=== PATIENT | female | born 1965 | race Caucasian/White ===

== ENCOUNTER 2020-09-11 08:03 | Outpatient (REF) | payer OTHER, SELFPAY ==
[2020-09-11 11:40] LABS: Alanine Aminotransferase 16 U/L (0-31); Aspartate Amino Transferase 19 U/L (5-31); Gamma Glutamyl Transpeptidase 30 U/L (7-33)
== END 2020-09-11 08:04 | disposition home or self-care (01) ==
LOC: HO.HMGCLDS 08:03
PROVIDERS: PCP Nurse Practitioner Family; Visit Provider Nurse Practitioner
DX: F11.20 Opioid dependence, uncomplicated (principal)
CPT/HCPCS: 36415; 82977; 84450; 84460

== ENCOUNTER 2021-05-14 10:21 | Outpatient (REF) | payer OTHER, SELFPAY ==
[2021-05-14 11:53] LABS: Alanine Aminotransferase 23 U/L (0-31); Aspartate Amino Transferase 25 U/L (5-31); Gamma Glutamyl Transpeptidase 29 U/L (7-33)
== END 2021-05-14 10:22 | disposition home or self-care (01) ==
LOC: HO.HMGCLDS 10:21
PROVIDERS: Visit Provider Registered Nurse
DX: F11.20 Opioid dependence, uncomplicated (principal)
CPT/HCPCS: 36415; 82977; 84450; 84460